=== PATIENT | female | born 1950 | race Caucasian/White ===

== ENCOUNTER 2019-01-22 20:07 | Emergency (ER) | payer MEDICARE ==
[2019-01-22] MEDS ORDERED: HYDROcodone/ACETAMIN 5-325 MG* 1 TAB PO ONE (22:06)
--- NOTE | 2019-01-22 22:16 | ED ---
Upper Extremity Pain - HPI Summary HPI Summary: 68 year old female presents with right arm injury today. She states she fell and landed on her outstretched arm. She admits to elbow and shoulder pain. Denies any wrist injury. Is right-handed. He has a previous fracture on the left wrist. no numbness or tingling. No other injury. No head injury or loss consciousness. - History of Current Complaint Chief Complaint: EDExtremityUpper Stated Complaint: RIGHT ARM INJURY PER PT Time Seen by Provider: 01/22/19 21:39 - Allergies/Home Medications Allergies/Adverse Reactions: Allergies Allergy/AdvReac Type Severity Reaction Status Date / Time No Known Allergies Allergy Verified 01/22/19 20:11 Home Medications: Home Medications Empaglifozin (NF) [Jardiance] 25 mg PO DAILY 01/22/19 [History Confirmed ] Losartan TAB* [Cozaar TAB*] 50 mg PO DAILY 01/22/19 [History Confirmed 01/22/19] glipiZIDE TAB.XL* [Glucotrol XL*] 10 mg PO DAILY 01/22/19 [History Confirmed ] PMH/Surg Hx/FS Hx/Imm Hx Endocrine/Hematology History: Denies: Hx Anticoagulant Therapy Cardiovascular History: Denies: Hx Myocardial Infarction Respiratory History: Denies: Hx Asthma - Cancer History Hx Chemotherapy: No Hx Radiation Therapy: No - Surgical History Surgery Procedure, Year, and Place: TUBAL 34 YRS AGO Infectious Disease History: No Infectious Disease History: Denies: Traveled Outside the [place] in Last 30 Days - Family History Known Family History: Positive: Non-Contributory - Social History Alcohol Use: Rare Substance Use Type: Reports: None Smoking Status (MU): Never Smoked Tobacco Review of Systems Negative: Fever Negative: Chest Pain Negative: Shortness Of Breath Positive: Myalgia - right arm pain All Other Systems Reviewed And Are Negative: Yes Physical Exam Triage Information Reviewed: Yes Vital Signs On Initial Exam: Initial Vitals Temp Pulse Resp BP Pulse Ox 98.0 F 78 18 179/106 98 01/22/19 20:12 01/22/19 20:12 01/22/19 20:12 01/22/19 20:12 01/22/19 20:12 Vital Signs Reviewed: Yes Appearance: Positive: Well-Appearing Skin: Positive: Warm, Dry Head/Face: Positive: Normal Head/Face Inspection Eyes: Positive: Normal, Conjunctiva Clear ENT: Positive: Pharynx normal Respiratory/Lung Sounds: Positive: Clear to Auscultation, Breath Sounds Present Cardiovascular: Positive: Normal, RRR Musculoskeletal: Positive: Limited @ - right shoulder and elbow, Other - tenderness over right shoulder and arm, good pulses, sensation grossly intact, good pen ruler operator strength Neurological: Positive: Normal Psychiatric: Positive: Normal Procedures - Sedation Patient Received Moderate/Deep Sedation with Procedure: No Diagnostics - Vital Signs Vital Signs Temp Pulse Resp BP Pulse Ox 01/22/19 20:12 98.0 F 78 18 179/106 98 - Laboratory Lab Statement: Any lab studies that have been ordered have been reviewed, and results considered in the medical decision making process. - Radiology humerus Radiology Interpretation Completed By: ED Physician Summary of Radiographic Findings: proximal humerus fracture elbow Radiology Interpretation Completed By: ED Physician Summary of Radiographic Findings: no fracture Course/Dx - Course Course Of Treatment: 68 year old female presents with right arm injury today. She states she fell and landed on her outstretched arm. She admits to elbow and shoulder pain. Denies any wrist injury. Is right-handed. He has a previous fracture on the left wrist. no numbness or tingling. No other injury. No head injury or loss consciousness. On exam tenderness greatest over right shoulder. Neurovascular intact. Good pen ruler operator strength. X-ray shows proximal humerus fracture. Discussed with Dr. Bushra phan in sling. Told to ice. will have follow-up with orthopedic. Patient understands agrees plan. - Diagnoses Differential Diagnosis/HQI/PQRI: Positive: Fracture (Closed), Strain, Sprain Provider Diagnoses: Closed fracture of right proximal humerus Discharge ED - Sign-Out/Discharge Documenting (check all that apply): Patient Departure - Discharge Plan Condition: Good Disposition: HOME Patient Education Materials: Proximal Humerus Fracture (ED) Referrals: Cricket Mcnamara MD [Primary Care Provider] - Kathia Ordoñez MD [Medical Doctor] - Additional Instructions: keep sling on the area Call ortho office to set up appointment for follow up Use ibuprofen or tyenlol for pain every 6 hours and use norco for breakthrough pain every 6 hours Ice Return to ED if develop any new or worsening symptoms - Billing Disposition and Condition Condition: GOOD Disposition: Home
[2019-01-22 23:37] VITALS: BP 144/104
== END 2019-01-22 23:36 | disposition home or self-care (01) ==
LOC: ED 20:07
DX: S42.211A Unspecified displaced fracture of surgical neck of right humerus, initial encounter for closed fracture (principal); W19.XXXA Unspecified fall, initial encounter; Y92.9 Unspecified place or not applicable; Z98.51 Tubal ligation status; Z79.899 Other long term (current) drug therapy
CPT/HCPCS: 99282